=== PATIENT | male | born 1960 | race Caucasian/White ===

== ENCOUNTER 2018-01-11 05:01 | Inpatient (IN) | END 2018-01-23 21:45 | DRG 312 ==

== ENCOUNTER 2018-11-15 14:55 | Inpatient (IN) | payer BC ==
[~2018-11-15] VITALS: Ht 170.2 cm; Wt 114.0 kg
[~2018-11-15 14:55] MED LIST: ASPI-831 PO; ATEN50TA PO; ATOR20TA65 PO; GABA100C14 PO; IBUP-1544 PO; LANT3I SC; LISI-471 PO; NIFE30TA2 PO; NOVO3I SC; PANT40TA4 PO; ZOLP5TAB7 PO
[2018-11-15 19:52] VITALS: PULSE 84
[2018-11-15 20:00] VITALS: PULSE 82
[2018-11-15 21:00] VITALS: Ht 170.2 cm; Wt 114.0 kg
[2018-11-15] MEDS ORDERED: ALBUTEROL/IPRATROPIUM (NEB) 3 ML AMP HHN PRN (21:00)
[2018-11-15] MEDS ORDERED: NACL 0.9% 3 ML SYG IV SCH (21:00)
[2018-11-15] MEDS ORDERED: ONDANSETRON 4 MG INJ IV PRN (21:00)
[2018-11-15] MEDS ORDERED: GLUCAGON 1 MG INJ IM PRN (22:30)
[2018-11-15] MEDS ORDERED: GLUCOSE GEL 15 GRAM TUBE BUCCAL PRN (22:30)
[2018-11-15] MEDS ORDERED: DEXTROSE 50% 50 ML SYRINGE IV PRN ×2 (22:30)
[2018-11-15] MEDS ORDERED: GLUCOSE GEL 15 GRAM TUBE PO PRN ×2 (22:30)
[2018-11-15] MEDS ORDERED: TRAZ-111 PO (23:48)
[2018-11-15] MEDS ORDERED: BEN50 PO (23:48)
[2018-11-15] MEDS ORDERED: ALPR0.254 PO (23:48)
[2018-11-16] VITALS (13 sets, daily range): BP systolic 141–188; BP diastolic 60–83; PULSE 64–97; RESP 18–20
[2018-11-16] MEDS: INSULIN ASPART [NOVOLOG] 3 ML PEN SC SCH ×5 (00:12→21:27)
[2018-11-16] MEDS ORDERED: hydrALAzine 20 MG INJ IV PRN (00:30)
[2018-11-16] MEDS ORDERED: INSULIN DETEMIR [LEVEMIR] (100 UNITS/ML) SYG SC ONE (00:30)
[2018-11-16] MEDS ORDERED: GUAIFENESIN/DM 5ML CUP PO PRN (00:30)
--- NOTE | 2018-11-16 00:50 | HP ---
Date/Time of Note Date/Time of Note DATE: 11/16/18 TIME: 00:50 Assessment/Plan VTE Prophylaxis Pharmacological prophylaxis: other Assessment/Plan Hospital Course Objective Physical exam General: Patient is laying in bed and answers questions appropriately Mentation: Patient is alert and oriented 4, Head: Normocephalic atraumatic Eyes: EOMI, pupils reactive to light Neck: Supple, nontender, midline Respiratory: Wheezing and coarse to auscultation bilaterally Cardiovascular: regular rate, no obvious murmurs Gastrointestinal: non-tender to palpation, bowel sounds heard. Neurological: Moves all extremities spontaneously Skin: No new skin lesions Assessment and plan CHF exacerbation -Medications started at other facility including Lasix IV was restarted, -Echo pending COPD exacerbation -Continue Solu-Medrol that was started at other facility -DuoNeb nebulizer -budesonide nebulizer Diabetes mellitus -Put patient back on home dose of Levemir, will adjust as needed -Insulin sliding scale Anxiety -Restart home meds, Xanax Mood disorder -Continue home meds Hypertension -Continue home meds Disposition -Continue treatment for CHF exacerbation and COPD exacerbation, titrate off O2 Result Diagram: 11/15/18211111/15/182111 Results 24hrs Laboratory Tests Test 11/15/18 21:12 11/15/18 23:14 White Blood Count 9.3 Red Blood Count 4.37 L Hemoglobin 13.7 L Hematocrit 41.1 L Mean Corpuscular Volume 94.1 Mean Corpuscular Hemoglobin 31.4 Mean Corpuscular Hemoglobin Concent 33.3 Red Cell Distribution Width 12.7 Platelet Count 188 # Mean Platelet Volume 11.2 H Immature Granulocytes % 1.000 H Neutrophils % 85.1 H Lymphocytes % 10.9 L Monocytes % 2.6 Eosinophils % 0.2 Basophils % 0.2 Nucleated Red Blood Cells % 0.0 Immature Granulocytes # 0.090 H Neutrophils # 7.9 H Lymphocytes # 1.0 Monocytes # 0.2 L Eosinophils # 0.0 Basophils # 0.0 Nucleated Red Blood Cells # 0.0 Sodium Level 133 L Potassium Level 4.6 Chloride Level 94 L Carbon Dioxide Level 32 H Anion Gap 7 Blood Urea Nitrogen 27 H Creatinine 1.02 Est Glomerular Filtrat Rate mL/min > 60 Glucose Level 411 *H Calcium Level 9.0 Magnesium Level 1.9 Total Bilirubin 0.2 Direct Bilirubin 0.00 Indirect Bilirubin 0.2 Aspartate Amino Transf (AST/SGOT) 36 Alanine Aminotransferase (ALT/SGPT) 27 Alkaline Phosphatase 86 B-Type Natriuretic Peptide 180 H Total Protein 7.4 Albumin 4.1 Globulin 3.30 H Albumin/Globulin Ratio 1.24 Bedside Glucose 413 *H HPI/ROS Admit Date/Time Admit Date/Time Nov 15, 2018 at 19:33 Hx of Present Illness Patient is a male with a past medical history significant for hypertension, anxiety, depression, diabetes mellitus, some sort of spinal cord injury as well as COPD and CHF who presented to outside facility and was transferred over to [facility] for insurance reasons. There is no discharge summary in the chart so I am not fully aware of what happened at the other facility but according to the patient patient was admitted for CHF exacerbation and COPD exacerbation. Patient currently feels well, his breathing has much improved. Patient denies nausea, vomiting, abdominal pain, lower extremity pain, headache PMH/Family/Social Past Medical History Medications Current Medications IV Flush (NS 3 ml) 3 ml PER PROTOCOL IV ; Start 11/15/18 at 21:00 Ondansetron HCl (Zofran Inj) 4 mg Q6H PRN IV NAUSEA/VOMITING; Start 11/15/18 at 21:00 Albuterol/ Ipratropium (Duoneb) 3 ml Q6HWA RESP THERAPY HHN ; Start 11/16/18 at 08:00 Albuterol/ Ipratropium (Duoneb) 3 ml Q2H RESP THERAPY PRN HHN shortness of breeth Last administered on 11/15/18at 23:43; Admin Dose 3 ML; Start 11/15/18 at 21:00 Budesonide (Pulmicort (Neb)) 0.5 mg BID RESP THERAPY HHN ; Start 11/16/18 at 09:00 Diagnostic Test (Pha) (Accu-Chek) 1 ea 02 XX ; Start 11/16/18 at 02:00 Miscellaneous Information 1 ea NOTE XX ; Start 11/15/18 at 22:30 Glucose (Glutose) 15 gm Q15M PRN PO DECREASED GLUCOSE; Start 11/15/18 at 22:30 Glucose (Glutose) 22.5 gm Q15M PRN PO DECREASED GLUCOSE; Start 11/15/18 at 22:30 Dextrose (D50w Syringe) 25 ml Q15M PRN IV DECREASED GLUCOSE; Start 11/15/18 at 22:30 Dextrose (D50w Syringe) 50 ml Q15M PRN IV DECREASED GLUCOSE; Start 11/15/18 at 22:30 Glucagon (Glucagen) 1 mg Q15M PRN IM DECREASED GLUCOSE; Start 11/15/18 at 22:30 Glucose (Glutose) 15 gm Q15M PRN BUCCAL DECREASED GLUCOSE; Start 11/15/18 at 22:30 Insulin Aspart (Novolog Insulin Pen) NOVOLOG *MILD* ALGORITHM WITH MEALS BEDTIME SC Last administered on 11/16/18at 00:12; Admin Dose 4 UNIT; Start 11/15/18 at 23:00 Furosemide (Lasix) 40 mg DAILY IV ; Start 11/16/18 at 09:00 Duloxetine HCl (Cymbalta) 60 mg DAILY PO ; Start 11/16/18 at 09:00 Insulin Detemir (Levemir) 68 units DAILY@2000 SC ; Start 11/16/18 at 20:00 Celecoxib (Celebrex) 200 mg DAILY PO ; Start 11/16/18 at 09:00 Diphenhydramine HCl (Benadryl) 50 mg HS PRN PO insomnia; Start 11/16/18 at 00:30 Gabapentin (Neurontin) 400 mg QID PO ; Start 11/16/18 at 09:00 Atorvastatin Calcium (Lipitor) 20 mg HS PO ; Start 11/16/18 at 21:00 Lisinopril (Zestril) 40 mg DAILY PO ; Start 11/16/18 at 09:00 Nifedipine (Procardia Xl) 60 mg DAILY PO ; Start 11/16/18 at 09:00 Guaifenesin/ Dextromethorphan (Robitussin Dm Liquid Cup) 5 ml Q4H PRN PO cough; Start 11/16/18 at 00:30 Trazodone HCl (Desyrel) 50 mg HS PRN PO insomnia; Start 11/16/18 at 00:30 Alprazolam (Xanax) 0.25 mg Q12 PRN PO ANXIETY; Start 11/16/18 at 00:30 Methylprednisolone Sodium Succinate (Solu-Medrol) 40 mg Q12 IV ; Start 11/16/18 at 09:00 Carvedilol (Coreg) 12.5 mg BID PO ; Start 2/16/19 at 09:00 Pantoprazole (Protonix Tab) 40 mg DAILY@06 PO ; Start 11/16/18 at 06:00 Hydralazine HCl (Apresoline) 10 mg Q4H PRN IV sbp >160; Start 11/16/18 at 00:30 Piperacillin Sod/ Tazobactam Sod 100 ml @ 200 mls/hr Q6 IVPB ; Start 11/16/18 at 01:00; Status UNV Coded Allergies: No Known Allergy (Unverified , 01/11/18) Past Surgical History Past Surgical Hx: other Family History Significant Family History: no pertinent family hx Exam/Review of Systems Vital Signs Vitals Vital Signs Date Temp Pulse Resp B/P (MAP) Pulse Ox O2 O2 Flow FiO2 Time Delivery Rate 11/16/18 97.9 78 18 143/83 96 00:10 (103) 11/15/18 3.0 23:45 11/15/18 Nasal 23:45 Cannula JOHANA ROLLE Nov 16, 2018 00:50
[2018-11-16] MEDS: traZODone 50 MG TAB PO PRN ×2 (01:58→20:44)
[2018-11-16] MEDS: ALPRAZOLAM 0.25 MG TAB PO PRN ×2 (01:58→20:44)
[2018-11-16] MEDS: DIPHENHYDRAMINE 50 MG CAP PO PRN ×2 (01:58→20:44)
[2018-11-16] MEDS: ACCU-CHEK XX SCH (02:00)
[2018-11-16] MEDS: PIPER-TAZO 3.375 GM IV (PMX) 100 ML IVPB SCH ×5 (02:03→23:02)
[2018-11-16] MEDS: PANTOPRAZOLE (EC) 40 MG TAB PO SCH (06:59)
[2018-11-16] MEDS ORDERED: INSULIN ASPART [NOVOLOG] 3 ML PEN SC SCH ×2 (08:00→18:00)
[2018-11-16] MEDS: FUROSEMIDE 40 MG INJ IV SCH (08:29)
[2018-11-16] MEDS: GABAPENTIN 400 MG CAP PO SCH ×2 (09:00→13:00)
[2018-11-16] MEDS ORDERED: NIFEdipine (XL) 60 MG TAB PO SCH (09:00)
[2018-11-16] MEDS ORDERED: METHYLPREDNISOLONE 40 MG INJ IV SCH (09:00)
[2018-11-16] MEDS ORDERED: AZITHROMYCIN 500MG/NS (PMX) 250 ML IVPB SCH (09:00)
[2018-11-16] MEDS ORDERED: LISINOPRIL 20 MG TAB PO SCH ×2 (09:00→21:00)
[2018-11-16] MEDS: ALBUTEROL/IPRATROPIUM (NEB) 3 ML AMP HHN SCH ×3 (09:38→19:56)
[2018-11-16] MEDS: BUDESONIDE (NEB) 0.5MG/2ML AMP HHN SCH ×2 (09:52→19:56)
[2018-11-16] MEDS ORDERED: DIPHENHYDRAMINE 50 MG CAP PO PRN (16:30)
--- NOTE | 2018-11-16 16:31 | RADRPT ---
Echocardiogram Report Patient Name: AMANDA LOVELLPatient ID: [id number] : 1960 (58y 5m)Study Date: 11/16/2018 9:09:13 AM Gender: MAccession #: [id number] Tech: THOMAS Location: Ref.Physician: JOHANA ROLLE Height(Cm): BSA: Weight(Kg): Quality: Technically Difficult StudyAccount #: Procedures: Echocardiographic Report: Transthoracic echocardiogram with complete 2D, M-Mode, and doppler examination. Indications: Congestive Heart Failure. Measurements: 2D/M Mode Doppler Measurement Value Normal Range Measurement Value Normal Range LVIDd 2D 4.2 [ 4.2 - 5.8 ] cm AV Peak Oneil 1.4 [ 100.0 - 170.0 ] cm/se c LVIDs 2D 2.5 [ 2.5 - 4.0 ] cm AV Peak PG 7.0 [ 2.0 - 9.0 ] mmHg LVPWd 2D 1.0 [ 0.6 - 1.0 ] cm LVOT Peak Oneil 0.9 [ 70.0 - 110.0 ] cm/sec IVSd 2D 1.1 [ 0.6 - 1.0 ] cm LVOT Peak PG 3.0 [ 2.0 - 6.0 ] mmHg AoR Diam 2D 3.3 [ 2.6 - 3.4 ] cm MV E Peak Oneil 1.0 [ 60.0 - 130.0 ] cm/sec EDV 2D 78.6 [ 62.0 - 150.0 ] ml MV A Peak Oneil 0.8 [ 100.0 - 120.0 ] cm/se c ESV 2D 21.4 [ 21.0 - 61.0 ] ml MV E/A 1.2 [ 0.8 - 1.5 ] ratio EF 2D 72.8 [ 52.0 - 72.0 ] percent MV PHT 61.0 [ 20.0 - 100.0 ] msec LA Dimen 2D 4.0 [ 3.0 - 4.0 ] cm MV Decel Time 209 [ 104 - 258 ] msec MV Decel [place] 5 Lat E` Oneil 0.1 [ 10.0 - 15.0 ] cm/sec Lateral E/E` 11.3 [ 1.0 - 2.0 ] ratio Med E` Oneil 0.1 cm/sec MV E/A 1.2 [ 0.8 - 1.5 ] ratio MVA PHT 3.6 [ 2.0 - 4.0 ] cm2 PV Peak Oneil 0.9 [ 40.0 - 80.0 ] cm/sec PV Peak PG 4.0 mmHg Findings: Left Ventricle: Normal left ventricular systolic function, not all wall segments seen well. Normal left ventricular cavity size. Normal left ventricular wall thickness. Ejection fraction is visually estimated at >60 %. Tissue Doppler/Mitral Doppler indices are within normal limits. E/E'= 9. Right Ventricle: Normal right ventricular size. Normal right ventricular systolic function. Left Atrium: The left atrium is normal in size. Right Atrium: The right atrium is normal in size. Atrial Septum: Not well visualized. Mitral Valve: Normal appearance of the mitral valve. Mild mitral annular calcification. No obvious mitral regurgitation. Aortic Valve: Normal appearance of the aortic valve. No significant aortic stenosis or insufficiency. Tricuspid Valve: Normal appearance of the tricuspid valve. No evidence of tricuspid regurgitation. Pulmonic Valve: Normal pulmonic valve appearance. No evidence of pulmonic regurgitation. Pericardium: Normal pericardium with no significant pericardial effusion. Aorta: Normal aortic root. IVC: The IVC is not well visualized. Pulmonary Artery: Not well visualized. Conclusions: Normal left ventricular systolic function, not all wall segments seen well. Normal left ventricular cavity size. Normal left ventricular wall thickness. Ejection fraction is visually estimated at >60 %. Tissue Doppler/Mitral Doppler indices are within normal limits. E/E'= 9. Normal appearance of the mitral valve. Mild mitral annular calcification. No obvious mitral regurgitation. Normal appearance of the aortic valve. No significant aortic stenosis or insufficiency. Normal appearance of the tricuspid valve. No evidence of tricuspid regurgitation. Electronically Signed By: Jimenez Acevedo 2018-11-16 16:30:47 PST
--- NOTE | 2018-11-16 16:35 | PN ---
Date/Time of Note Date/Time of Note DATE: 11/16/18 TIME: 16:31 Assessment/Plan VTE Prophylaxis Risk score (from Nsg)>0 risk: 5 SCD applied (from Nsg): Yes SCD contraindicated: low risk/ambulating Pharmacological prophylaxis: LMWH Lines/Catheters IV Catheter Type (from Nrsg): Saline Lock Assessment/Plan Hospital Course Assessment and plan 1. Dyspnea orthopnea edema decompensated CHF, stable improved observe 2. Possible MEG. Consider outpatient sleep study 3. Accelerated hypertension stable observe 4. Nonadherence 5. Type 2 diabetes A1c 9.7 not at goal 6. Spinal stenosis. Pending outpatient referral surgery 7. Chronic hypertension. Stress test unremarkable last year for ischemia 8. Morbid obesity 9. Ftt; stable discharge back to [place] post subacute soon 10. Bronchitis? Asthma stable continue 5 days steroids and aerosols Subjective: Lots of questions all answered. I am happy to restart his home medicines. Dyspnea improved some wheezing. No fever sore throat. Possible ill contacts. Not sure if he received his flu shot. Refused his morning medica tions today Objective: Sr bp a little high at Physical exam No pallor Reg no mrg Diminished some scattered wheezing Bs+ nt nd; no RRG overweight No edema [facility] Result Diagram: 11/16/18 0526 11/16/18 0526 Results 24hrs Laboratory Tests Test 11/15/18 21:12 11/15/18 23:14 11/16/18 02:00 11/16/18 05:26 White Blood Count 9.3 10.3 Red Blood Count 4.37 L 4.56 L Hemoglobin 13.7 L 14.1 Hematocrit 41.1 L 43.0 Mean Corpuscular 94.1 94.3 Volume Mean Corpuscular 31.4 30.9 Hemoglobin Mean Corpuscular 33.3 32.8 Hemoglobin Concent Red Cell 12.7 12.5 Distribution Width Platelet Count 188 # 198 Mean Platelet Volume 11.2 H 11.6 H Immature 1.000 H 0.900 H Granulocytes % Neutrophils % 85.1 H 70.6 Lymphocytes % 10.9 L 19.7 Monocytes % 2.6 7.9 Eosinophils % 0.2 0.3 Basophils % 0.2 0.6 Nucleated Red Blood 0.0 0.0 Cells % Immature 0.090 H 0.090 H Granulocytes # Neutrophils # 7.9 H 7.3 Lymphocytes # 1.0 2.0 Monocytes # 0.2 L 0.8 Eosinophils # 0.0 0.0 Basophils # 0.0 0.1 Nucleated Red Blood 0.0 0.0 Cells # Sodium Level 133 L 138 Potassium Level 4.6 4.2 Chloride Level 94 L 98 Carbon Dioxide Level 32 H 33 H Anion Gap 7 7 Blood Urea Nitrogen 27 H 26 H Creatinine 1.02 0.79 Est Glomerular > 60 > 60 Filtrat Rate mL/min Glucose Level 411 *H 300 H Calcium Level 9.0 9.1 Magnesium Level 1.9 2.2 Total Bilirubin 0.2 0.2 Direct Bilirubin 0.00 0.00 Indirect Bilirubin 0.2 0.2 Aspartate Amino 36 31 Transf (AST/SGOT) Alanine 27 22 Aminotransferase (AL T/SGPT) Alkaline Phosphatase 86 74 B-Type Natriuretic 180 H Peptide Total Protein 7.4 7.1 Albumin 4.1 3.9 Globulin 3.30 H 3.20 Albumin/Globulin 1.24 1.21 Ratio Bedside Glucose 413 *H 296 H Hemoglobin A1c 9.7 H Test 11/16/18 07:31 11/16/18 11:47 Bedside Glucose 238 H 332 H Exam/Review of Systems Exam Vitals Vital Signs Date Temp Pulse Resp B/P (MAP) Pulse Ox O2 O2 Flow FiO2 Time Delivery Rate 11/16/18 97 16:11 11/16/18 98.6 20 180/82 95 15:37 (114) 11/16/18 3.0 14:11 11/16/18 Nasal 14:10 Cannula Intake and Output 11/15/18 11/15/18 11/16/18 1515:00 23:00 07:00 IntakeIntake Total 600 ml OutputOutput Total 950 ml BalanceBalance -350 ml Results Results 24hrs Laboratory Tests Test 11/15/18 21:12 11/15/18 23:14 11/16/18 02:00 11/16/18 05:26 White Blood Count 9.3 10.3 Red Blood Count 4.37 L 4.56 L Hemoglobin 13.7 L 14.1 Hematocrit 41.1 L 43.0 Mean Corpuscular 94.1 94.3 Volume Mean Corpuscular 31.4 30.9 Hemoglobin Mean Corpuscular 33.3 32.8 Hemoglobin Concent Red Cell 12.7 12.5 Distribution Width Platelet Count 188 # 198 Mean Platelet Volume 11.2 H 11.6 H Immature 1.000 H 0.900 H Granulocytes % Neutrophils % 85.1 H 70.6 Lymphocytes % 10.9 L 19.7 Monocytes % 2.6 7.9 Eosinophils % 0.2 0.3 Basophils % 0.2 0.6 Nucleated Red Blood 0.0 0.0 Cells % Immature 0.090 H 0.090 H Granulocytes # Neutrophils # 7.9 H 7.3 Lymphocytes # 1.0 2.0 Monocytes # 0.2 L 0.8 Eosinophils # 0.0 0.0 Basophils # 0.0 0.1 Nucleated Red Blood 0.0 0.0 Cells # Sodium Level 133 L 138 Potassium Level 4.6 4.2 Chloride Level 94 L 98 Carbon Dioxide Level 32 H 33 H Anion Gap 7 7 Blood Urea Nitrogen 27 H 26 H Creatinine 1.02 0.79 Est Glomerular > 60 > 60 Filtrat Rate mL/min Glucose Level 411 *H 300 H Calcium Level 9.0 9.1 Magnesium Level 1.9 2.2 Total Bilirubin 0.2 0.2 Direct Bilirubin 0.00 0.00 Indirect Bilirubin 0.2 0.2 Aspartate Amino 36 31 Transf (AST/SGOT) Alanine 27 22 Aminotransferase (AL T/SGPT) Alkaline Phosphatase 86 74 B-Type Natriuretic 180 H Peptide Total Protein 7.4 7.1 Albumin 4.1 3.9 Globulin 3.30 H 3.20 Albumin/Globulin 1.24 1.21 Ratio Bedside Glucose 413 *H 296 H Hemoglobin A1c 9.7 H Test 11/16/18 07:31 11/16/18 11:47 Bedside Glucose 238 H 332 H Medications Medication Current Medications IV Flush (NS 3 ml) 3 ml PER PROTOCOL IV ; Start 11/15/18 at 21:00 Ondansetron HCl (Zofran Inj) 4 mg Q6H PRN IV NAUSEA/VOMITING; Start 11/15/18 at 21:00 Albuterol/ Ipratropium (Duoneb) 3 ml Q6HWA RESP THERAPY HHN Last administered on 11/16/18at 14:06; Admin Dose 3 ML; Start 11/16/18 at 08:00 Albuterol/ Ipratropium (Duoneb) 3 ml Q2H RESP THERAPY PRN HHN shortness of breeth Last administered on 11/15/18at 23:43; Admin Dose 3 ML; Start 11/15/18 at 21:00 Budesonide (Pulmicort (Neb)) 0.5 mg BID RESP THERAPY HHN Last administered on 11/16/18at 09:52; Admin Dose 0.5 MG; Start 11/16/18 at 09:00 Diagnostic Test (Pha) (Accu-Chek) 1 ea 02 XX ; Start 11/16/18 at 02:00 Miscellaneous Information 1 ea NOTE XX ; Start 11/15/18 at 22:30 Glucose (Glutose) 15 gm Q15M PRN PO DECREASED GLUCOSE; Start 11/15/18 at 22:30 Glucose (Glutose) 22.5 gm Q15M PRN PO DECREASED GLUCOSE; Start 11/15/18 at 22:30 Dextrose (D50w Syringe) 25 ml Q15M PRN IV DECREASED GLUCOSE; Start 11/15/18 at 22:30 Dextrose (D50w Syringe) 50 ml Q15M PRN IV DECREASED GLUCOSE; Start 11/15/18 at 22:30 Glucagon (Glucagen) 1 mg Q15M PRN IM DECREASED GLUCOSE; Start 11/15/18 at 22:30 Glucose (Glutose) 15 gm Q15M PRN BUCCAL DECREASED GLUCOSE; Start 11/15/18 at 22:30 Insulin Aspart (Novolog Insulin Pen) NOVOLOG *MILD* ALGORITHM WITH MEALS BEDTIME SC Last administered on 11/16/18at 11:54; Admin Dose 5 UNIT; Start 11/15/18 at 23:00 Furosemide (Lasix) 40 mg DAILY IV Last administered on 11/16/18at 08:29; Admin Dose 40 MG; Start 11/16/18 at 09:00 Duloxetine HCl (Cymbalta) 60 mg DAILY PO ; Start 11/16/18 at 09:00 Insulin Detemir (Levemir) 68 units DAILY@2000 SC ; Start 11/16/18 at 20:00 Celecoxib (Celebrex) 200 mg DAILY PO ; Start 11/16/18 at 09:00 Diphenhydramine HCl (Benadryl) 50 mg HS PRN PO insomnia Last administered on 11/16/18at 01:58; Admin Dose 50 MG; Start 11/16/18 at 00:30 Atorvastatin Calcium (Lipitor) 20 mg HS PO ; Start 11/16/18 at 21:00 Guaifenesin/ Dextromethorphan (Robitussin Dm Liquid Cup) 5 ml Q4H PRN PO cough; Start 11/16/18 at 00:30 Trazodone HCl (Desyrel) 50 mg HS PRN PO insomnia Last administered on 11/16/18at 01:58; Admin Dose 50 MG; Start 11/16/18 at 00:30 Alprazolam (Xanax) 0.25 mg Q12 PRN PO ANXIETY Last administered on 11/16/18at 01:58; Admin Dose 0.25 MG; Start 11/16/18 at 00:30 Pantoprazole (Protonix Tab) 40 mg DAILY@06 PO Last administered on 11/16/18at 06:59; Admin Dose 40 MG; Start 11/16/18 at 06:00 Hydralazine HCl (Apresoline) 10 mg Q4H PRN IV sbp >160; Start 11/16/18 at 00:30 Piperacillin Sod/ Tazobactam Sod 100 ml @ 200 mls/hr Q6 IVPB Last administered on 11/16/18at 11:55; Admin Dose 200 MLS/HR; Start 11/16/18 at 01:00 Aspirin (Aspirin) 81 mg DAILY PO ; Start 11/16/18 at 16:30 Atenolol (Tenormin) 50 mg AC BREAKFAST PO ; Start 11/17/18 at 07:00 Diphenhydramine HCl (Benadryl) 50 mg Q6 PRN PO ITCHING; Start 11/16/18 at 16:30 Gabapentin (Neurontin) 100 mg TID PO ; Start 11/16/18 at 21:00 Insulin Aspart (Novolog Insulin Pen) 10 unit WITH MEALS SC ; Start 11/16/18 at 18:00 Insulin Glargine (Lantus) 30 units DAILY@08 SC ; Start 11/17/18 at 08:00; Status UNV Lisinopril (Zestril) 40 mg QHS PO ; Start 11/16/18 at 21:00 Nifedipine (Procardia Xl) 30 mg BID PO ; Start 11/16/18 at 21:00 Thiamine HCl (Vitamin B1) 100 mg DAILY PO ; Start 11/17/18 at 09:00 Prednisone (Prednisone) 60 mg DAILY PO ; Start 11/17/18 at 09:00 Enoxaparin Sodium (Lovenox) 40 mg DAILY SC ; Start 11/17/18 at 09:00; Status U NV Lactobacillus Acidophilus/ Rhamnosus (Culturelle) 1 cap BID PO ; Start 11/16/18 at 21:00 ARLEN RAVI MD Nov 16, 2018 16:35
[2018-11-16] MEDS: DULOXETINE 30 MG CAP DR PO SCH (16:54)
[2018-11-16] MEDS: CELECOXIB 200 MG CAP PO SCH (16:54)
[2018-11-16] MEDS: ASPIRIN 81 MG TAB PO SCH (16:54)
[2018-11-16] MEDS ORDERED: INSULIN DETEMIR [LEVEMIR] (100 UNITS/ML) SYG SC SCH (20:00)
[2018-11-16] MEDS ORDERED: INSULIN GLARGINE [LANTus] (100 UNITS/ML) SYG SC SCH (20:00)
[2018-11-16] MEDS: GABAPENTIN 100 MG CAP PO SCH (20:43)
[2018-11-16] MEDS: NIFEdipine (XL) 30 MG TAB PO SCH (20:43)
[2018-11-16] MEDS: LACTOBACILLUS RHAMNOSUS CAP PO SCH (20:44)
[2018-11-16] MEDS ORDERED: LACTOBACILLUS RHAMNOSUS CAP PO SCH (21:00)
[2018-11-16] MEDS ORDERED: ATORVASTATIN 20 MG TAB PO SCH (21:00)
[2018-11-16] MEDS ORDERED: INSULIN ASPART [NOVOLOG] 3 ML PEN SC ONE (21:30)
[2018-11-17] VITALS (9 sets, daily range): BP systolic 143–173; BP diastolic 79–85; PULSE 63–85; RESP 18–19
[2018-11-17] MEDS: ACCU-CHEK XX SCH (02:00)
[2018-11-17] MEDS ORDERED: ATENOLOL 50 MG TAB ONE (05:17)
[2018-11-17] MEDS: PIPER-TAZO 3.375 GM IV (PMX) 100 ML IVPB SCH ×2 (05:35→12:23)
[2018-11-17] MEDS: PANTOPRAZOLE (EC) 40 MG TAB PO SCH (05:35)
[2018-11-17] MEDS: ATENOLOL 50 MG TAB PO SCH ×2 (06:12→08:48)
[2018-11-17] MEDS: INSULIN ASPART [NOVOLOG] 3 ML PEN SC SCH ×2 (08:00→12:32)
[2018-11-17] MEDS ORDERED: INSULIN GLARGINE [LANTus] (100 UNITS/ML) SYG SC SCH ×2 (08:00)
[2018-11-17] MEDS ORDERED: INSULIN ASPART [NOVOLOG] 3 ML PEN SC SCH ×2 (08:00→18:00)
[2018-11-17] MEDS: FUROSEMIDE 40 MG INJ IV SCH (08:47)
[2018-11-17] MEDS: GABAPENTIN 100 MG CAP PO SCH ×2 (08:47→12:23)
[2018-11-17] MEDS: NIFEdipine (XL) 30 MG TAB PO SCH (08:48)
[2018-11-17] MEDS: CELECOXIB 200 MG CAP PO SCH (08:48)
[2018-11-17] MEDS: LACTOBACILLUS RHAMNOSUS CAP PO SCH (08:49)
[2018-11-17] MEDS: DULOXETINE 30 MG CAP DR PO SCH (08:49)
[2018-11-17] MEDS: ASPIRIN 81 MG TAB PO SCH (08:49)
[2018-11-17] MEDS ORDERED: THIAMINE 100 MG TAB PO SCH (09:00)
[2018-11-17] MEDS ORDERED: ENOXAPARIN 40 MG/0.4 ML SYG SC SCH (09:00)
[2018-11-17] MEDS ORDERED: predniSONE 20 MG TAB PO SCH (09:00)
[2018-11-17] MEDS: BUDESONIDE (NEB) 0.5MG/2ML AMP HHN SCH (09:36)
[2018-11-17] MEDS: ALBUTEROL/IPRATROPIUM (NEB) 3 ML AMP HHN SCH ×2 (09:36→14:39)
--- NOTE | 2018-11-17 12:40 | DS ---
Date/Time of Note Date/Time of Note DATE: 11/17/18 TIME: 12:38 Discharge Summary Admission/Discharge Info Admit Date/Time Nov 15, 2018 at 19:33 Discharge Date/Time Patient Condition: Stable Procedures Chest x-ray: No acute process Ultrasound venous bilaterally: No acute process 2D echo Conclusions: Normal left ventricular systolic function, not all wall segments seen well. Normal left ventricular cavity size. Normal left ventricular wall thickness. Ejection fraction is visually estimated at >60 %. Tissue Doppler/Mitral Doppler indices are within normal limits. E/E'= 9. Normal appearance of the mitral valve. Mild mitral annular calcification. No obvious mitral regurgitation. Normal appearance of the aortic valve. No significant aortic stenosis or insufficiency. Normal appearance of the tricuspid valve. No evidence of tricuspid regurgitation. Hx of Present Illness Admitted for dyspnea. Initially seen in [facility] ER and transferred for continuity with his insurance coverage. Hospital Course Hospital course/assessment and plan 1. Dyspnea orthopnea edema; decompensated CHF, stable improved observe discharge. 2. Possible MEG. Consider outpatient sleep study will ask case management for referral 3. Accelerated hypertension stable observe 4. Nonadherence status post counseling. Dietary indiscretion 5. Type 2 diabetes A1c 9.7 not at goal to increase insulin. 50% with meals and 50% long-acting. Outpatient diabetic education if needed 6. Spinal stenosis. Pending outpatient referral surgery 7. Chronic hypertension. Stress test unremarkable last year for ischemia 8. Morbid obesity 9. Ftt; stable discharge back to [place] post subacute 10. Bronchitis? Asthma stable continue 5 days steroids and aerosols Subjective: 11/16 lots of questions all answered. I am happy to restart his home medicines. Dyspnea improved some wheezing. No fever sore throat. Possible ill contacts. Not sure if he received his flu shot. Refused his morning medications today 11/17 feels better Objective: Sr bp a little high Physical exam No pallor Reg no mrg Diminished some scattered, but less wheezing Bs+ nt nd; no RRG overweight No edema [facility] Home Meds Active Scripts Zolpidem Tartrate* (Zolpidem Tartrate*) 5 Mg Tablet, 10 MG PO HS PRN for INSOMNIA, #14 TAB Prov:BETITO JI 01/23/18 Pantoprazole* (Pantoprazole*) 40 Mg Tablet., 40 MG PO DAILY@06, #30 Prov:BETITO JI 01/23/18 Nifedipine (Procardia Xl) 30 Mg Tab.er.24, 30 MG PO BID, #30 TAB Prov:BETITO JI 01/23/18 Lisinopril* (Lisinopril*) 20 Mg Tablet, 40 MG PO QHS, #30 TAB Prov:BETITO JI 01/23/18 Insulin Glargine* (Lantus*) 100 Unit/Ml Soln, 30 UNIT SC DAILY@08 for 30 Days Prov:BETITO JI 01/23/18 Insulin Aspart* (Novolog Insulin Pen*) 100 Unit/Ml Soln, 0 UNIT SC WITH MEALS BEDTIME for 30 Days Prov:BETITO JI 01/23/18 Insulin Aspart* (Novolog Insulin Pen*) 100 Unit/Ml Soln, 10 UNIT SC WITH MEALS for 30 Days Prov:BETITO JI 01/23/18 Ibuprofen* (Ibuprofen*) 800 Mg Tablet, 800 MG PO TID, #90 TAB Prov:BETITO JI 01/23/18 Gabapentin* (Gabapentin*) 100 Mg Capsule, 100 MG PO TID, #91 CAP Prov:BETITO JI 01/23/18 Atorvastatin Calcium (Atorvastatin Calcium) 20 Mg Tablet, 20 MG PO HS, #30 TAB Prov:BETITO JI 01/23/18 Atenolol* (Atenolol*) 50 Mg Tablet, 50 MG PO AC BREAKFAST, #30 TAB Prov:BETITO JI 01/23/18 Aspirin (Aspirin) 81 Mg Chew, 81 MG PO DAILY, #30 TAB Prov:BARBARAElijahBETITO 01/23/18 Reported Medications Trazodone Hcl* (Trazodone Hcl*) 50 Mg Tablet, 50 MG PO QHS, #30 TAB 11/15/18 Diphenhydramine Hcl* (Benadryl*) 50 Mg Cap, 50 MG PO Q6 PRN for ITCHING, CAP 11/15/18 Alprazolam (Xanax) 0.25 Mg Tab, 0.25 MG PO Q8H PRN for ANXIETY, TAB 11/15/18 Follow-up Plan Dr Judah Lopez 1wk Primary Care Provider Scar Quintana MD Time spent on discharge: > 30 minutes Pending Labs Laboratory Tests Test 11/16/18 17:04 11/16/18 20:39 11/17/18 02:12 11/17/18 05:03 Bedside 500 390 233 Glucose mg/dL (70-220) mg/dL (70-220) mg/dL (70-220) White Blood 10.4 Count 10^3/ul (4.8-1 0.8) Red Blood 4.44 Count 10^6/ul (4.70- 6.10) Hemoglobin 13.9 g/dl (14.0-18. 0) Hematocrit 41.9 % (42.0-52.0) Mean 94.4 Corpuscular fl (82.0-101.0 Volume ) Mean 31.3 Corpuscular pg (29.0-33.0) Hemoglobin Mean 33.2 Corpuscular g/dl (32.0-37. Hemoglobin Conc 0) ent Red Cell 12.7 Distribution % (11.5-14.5) Width Platelet Count 185 10^3/UL (140-4 15) Mean Platelet 11.5 Volume fl (7.4-10.4) Immature 0.800 Granulocytes % % (0.001-0.429 ) Neutrophils % 66.7 % (39.0-77.0) Lymphocytes % 20.8 % (15.0-51.0) Monocytes % 10.0 % (0.0-11.0) Eosinophils % 1.4 % (0.0-7.0) Basophils % 0.3 % (0.0-2.0) Nucleated Red 0.0 Blood Cells % /100WBC (0.0-0 .0) Immature 0.080 Granulocytes # 10^3/ul (0.0-0 .031) Neutrophils # 7.0 10^3/ul (1.6-7 .5) Lymphocytes # 2.2 10^3/ul (0.8-2 .9) Monocytes # 1.0 10^3/ul (0.3-0 .9) Eosinophils # 0.2 10^3/ul (0.0-0 .5) Basophils # 0.0 10^3/ul (0.0-0 .1) Nucleated Red 0.0 Blood Cells # 10^3/ul (0.0-0 .0) Sodium Level 140 mmol/L (135-14 4) Potassium 4.2 Level mmol/L (3.5-5. 1) Chloride Level 95 mmol/L (97-110 ) Carbon Dioxide 38 Level mmol/L (21-31) Anion Gap 7 (5-13) Blood Urea 23 Nitrogen mg/dl (7-20) Creatinine 0.77 mg/dl (0.61-1. 24) Est Glomerular > 60 Filtrat mL/min (>60) Rate mL/min Glucose Level 245 mg/dl (70-220) Hemoglobin A1c 9.7 % (0-5.9) Calcium Level 9.0 mg/dl (8.4-10. 2) Phosphorus 4.5 Level mg/dl (2.5-4.9 ) Magnesium 2.0 Level mg/dl (1.7-2.5 ) Total 0.2 Bilirubin mg/dl (0.2-1.3 ) Direct 0.00 Bilirubin mg/dl (0.00-0. 20) Indirect 0.2 Bilirubin mg/dl (0-1.1) Aspartate Amino 23 Transf (AST/SGO IU/L (15-46) T) Alanine 27 Aminotransferas IU/L (13-69) e (ALT/SGPT) Alkaline 61 Phosphatase IU/L (42-121) Troponin I < 0.012 ng/ml (0.000-0 .120) Total Protein 6.9 g/dl (6.1-8.1) Albumin 3.7 g/dl (3.3-4.9) Globulin 3.20 g/dl (1.3-3.2) Albumin/Globuli 1.15 n Ratio Thyroid 0.838 Stimulating MIU/L (0.465-4 Hormone (TSH) .680) Test 11/17/18 07:48 11/17/18 11:39 Bedside 243 344 Glucose mg/dL (70-220) mg/dL (70-220) ARLEN RAVI MD Nov 17, 2018 12:40
--- NOTE | 2018-11-17 12:42 | PDOCDIS ---
Discharge Instructions CONDITION [id number] Patient Condition: [id number] Stable HOME CARE INSTRUCTIONS: [id number] Diet Instructions: [id number] Low Fat /Cholesterol Pozno5Nh Special Diet: Vabji9a l4Bd Activity Restrictions: Vdowf9d Slowly Increase Activity Avoid heavy lifting Do not Drive FOLLOW UP/APPOINTMENTS Follow-up Plan Dr Judah Lopez 1wk ARLEN RAVI MD Nov 17, 2018 12:42
[2018-11-17] MEDS ORDERED: FURO40TA4 PO (12:46)
[2018-11-17] MEDS ORDERED: CELE200C PO (12:46)
[2018-11-17] MEDS ORDERED: PRED20TA PO (12:46)
[2018-11-17] MEDS ORDERED: Insulin Glargine SC (12:46)
[2018-11-17] MEDS ORDERED: IPRA3AMP29 HHN (12:46)
[2018-11-17] MEDS ORDERED: GUAI120S26 PO (12:46)
[2018-11-17] MEDS ORDERED: NOVO3I SC (12:46)
[2018-11-17] MEDS ORDERED: AZIT250T13 PO (12:46)
[2018-11-17] MEDS ORDERED: DULO30CA45 PO (12:46)
[2018-11-17] MEDS ORDERED: ALPR0.254 PO (12:46)
[2018-11-17] MEDS ORDERED: THIA100T56 PO (12:46)
[2018-11-17] MEDS: ALPRAZOLAM 0.25 MG TAB PO PRN (16:32)
[2018-11-17] MEDS ORDERED: DOCUSATE SODIUM 100 MG CAP PO SCH (21:00)
[2018-11-18] MEDS ORDERED: INSULIN GLARGINE [LANTus] (100 UNITS/ML) SYG SC SCH (08:00)
== END 2018-11-17 16:45 | DRG 192 ==
LOC: 6WM 19:33
PROVIDERS: ADMIT Hospitalist; ATTEND Internal Medicine
DX: J44.1 Chronic obstructive pulmonary disease with (acute) exacerbation (principal); G47.33 Obstructive sleep apnea (adult) (pediatric); F41.9 Anxiety disorder, unspecified; I11.0 Hypertensive heart disease with heart failure; I50.9 Heart failure, unspecified; E11.9 Type 2 diabetes mellitus without complications; F39 Unspecified mood [affective] disorder; Z91.11 Patient's noncompliance with dietary regimen; M48.00 Spinal stenosis, site unspecified; E66.01 Morbid (severe) obesity due to excess calories; Z68.39 Body mass index [BMI] 39.0-39.9, adult
CPT/HCPCS: 71045; 80053; 82962; 83036; 83735; 83880; 84100; 84443; 84484; 85025; 87040; 93306; 93970; 94640; 94664; J0360; J0456; J1650; J1815; J1940; J2543; J2920; J7512